=== PATIENT | female | born 1945 | race Caucasian/White ===

== ENCOUNTER 2018-01-31 15:27 | Emergency (ER) | payer OTHER, BC ==
[~2018-01-31] VITALS: Ht 167.6 cm; Wt 110.4 kg
[2018-01-31 15:37] VITALS: BP 125/78
[2018-01-31 16:14] LABS: HEMOGLOBIN 13.5 G/DL (11.9-15.5); MCH 30.5 PG (29.0-34.0); MCHC 34.6 G/DL (30.0-36.0); MCV 88.2 FL (83-99); PLATELET COUNT 217 K/uL (156-360); RBC DIS.WIDTH-CV 13.5 % (11.8-14.6); RBC DIS.WIDTH-SD 43.8 % (39-53); RED BLOOD COUNT 4.42 M/uL (3.80-5.20); WHITE BLOOD COUNT 6.6 K/uL (4.1-10.2)
[2018-01-31 16:29] LABS: CHLORIDE 106 mEq/L (99-109); POTASSIUM 3.6 mEq/L (3.7-5.4); SODIUM 140 mEq/L (136-147)
[2018-01-31 16:30] LABS: GLUCOSE 119 mg/dL (70-99)
[2018-01-31 16:34] LABS: CREATININE 0.7 mg/dL (0.6-1.3)
[2018-01-31 16:35] LABS: UREA NITROGEN (BUN) 21 mg/dL (9-23)
[2018-01-31 16:37] LABS: GFR ESTIMATE (CALCULATED) > 59 mL/min/
[2018-01-31 16:38] LABS: TROP-I INTERPRETATION NEGATIVE; TROPONIN-I < 0.01 ng/mL (0.0-0.30)
[2018-01-31] MEDS ORDERED: ZOFRAN ODT8 MG PO (19:13)
== END 2018-01-31 20:00 | disposition home or self-care (01) ==
LOC: EME 15:27
PROVIDERS: Physician Assistant
DX: R11.0 Nausea (principal); R53.1 Weakness; Z88.0 Allergy status to penicillin; Z85.3 Personal history of malignant neoplasm of breast; H35.30 Unspecified macular degeneration
CPT/HCPCS: 71045; 74177; 80048; 81003; 84484; 85027; 93005; 99281; 99285; J0780; J2405; J2550; J7040